=== PATIENT | male | born 1965 | race Caucasian/White ===

== ENCOUNTER 2023-05-23 17:06 | Outpatient (CLI) | payer OTHER, SELFPAY | END 2023-05-23 17:07 | disposition home or self-care (01) | LOC: FBOREF 17:07 | PROVIDERS: PCP Family Medicine; Visit Provider Family Medicine | DX: Z00.00 Encounter for general adult medical examination without abnormal findings (principal); E11.9 Type 2 diabetes mellitus without complications; I10 Essential (primary) hypertension; E78.2 Mixed hyperlipidemia; E66.09 Other obesity due to excess calories; Z12.5 Encounter for screening for malignant neoplasm of prostate | CPT/HCPCS: 80048; 80061; 84153 ==

== ENCOUNTER 2024-06-28 10:38 | Outpatient (CLI) | payer OTHER, SELFPAY | END 2024-06-28 10:39 | disposition home or self-care (01) | PROVIDERS: PCP Family Medicine; Visit Provider Family Medicine | DX: I10 Essential (primary) hypertension (principal); E78.2 Mixed hyperlipidemia; E11.9 Type 2 diabetes mellitus without complications; Z79.4 Long term (current) use of insulin | CPT/HCPCS: 80048; 80061; 84460 ==

== ENCOUNTER 2024-12-20 06:35 | Outpatient (CLI) | payer OTHER, SELFPAY ==
--- NOTE | 2024-12-20 07:44 | P.ANES_ITS ---
Anesthesia Charges Start Date/Time Anesthesia Start Date: 12/20/24 Anesthesia Start Time: 07:13 Stop Date/Time Anesthesia Stop Date: 12/20/24 Anesthesia Stop Time: 07:40 Coding CPT Codes CPT Codes: ANES LWR INTST NDSC NOS - [id number] ([id number]) P3 - PATIENT W/SEVERE SYS DISEASE, QZ - ELECTRICAL SYSTEMS ENGINEER SVC W/O LAND LEVELER BY
--- NOTE | 2024-12-20 07:44 | W.ANESCHARGE ---
Anesthesia Charges Start Date/Time Anesthesia Start Date: 12/20/24 Anesthesia Start Time: 07:13 Stop Date/Time Anesthesia Stop Date: 12/20/24 Anesthesia Stop Time: 07:40 Coding CPT Codes CPT Codes: ANES LWR INTST NDSC NOS - [id number] ([id number]) P3 - PATIENT W/SEVERE SYS DISEASE, QZ - SUPERIOR COURT JUDGE SVC W/O ELECTRICAL DESIGN TECHNOLOGIST BY
== END 2024-12-20 06:36 | disposition home or self-care (01) ==
LOC: OP CLINIC 06:35
PROVIDERS: PCP Family Medicine; Visit Provider Surgery
DX: Z12.11 Encounter for screening for malignant neoplasm of colon (principal); D12.8 Benign neoplasm of rectum; Z86.0100 Personal history of colon polyps, unspecified
CPT/HCPCS: 00811; 45385; 88305; J2704

== ENCOUNTER 2025-04-01 16:51 | Outpatient (CLI) | payer OTHER, SELFPAY | END 2025-04-01 16:52 | disposition home or self-care (01) | LOC: FBOREF 16:52 | PROVIDERS: PCP Family Medicine; Visit Provider Family Medicine | DX: Z12.5 Encounter for screening for malignant neoplasm of prostate (principal) | CPT/HCPCS: G0103 ==